=== PATIENT | male | born 1995 | race Caucasian/White ===

== ENCOUNTER 2017-10-26 06:35 | Emergency (ER) | payer OTHER ==
[~2017-10-26] VITALS: Ht 182.9 cm; Wt 91.0 kg
[2017-10-26] MEDS ORDERED: SODIUM CHLORIDE 0.9% 1,000 ML IV ONE (06:53)
[2017-10-26] MEDS ORDERED: MORPHINE SULFATE 4 MG/ML CPJ (NOT FOR IM USE) IV STA (06:53)
[2017-10-26] MEDS ORDERED: ONDANSETRON HCL 4MG/2ML VIAL IV STA (06:53)
[2017-10-26 09:33] VITALS: BP 128/74
[2017-10-27] MEDS ORDERED: HYDR-4001 PO (11:12)
[2017-10-27] MEDS ORDERED: KEPP500 PO (11:12)
== END 2017-10-26 09:40 | disposition home or self-care (01) ==
LOC: ER 06:35
DX: S82.832A Other fracture of upper and lower end of left fibula, initial encounter for closed fracture (principal); S82.292A Other fracture of shaft of left tibia, initial encounter for closed fracture; G40.909 Epilepsy, unspecified, not intractable, without status epilepticus; F17.210 Nicotine dependence, cigarettes, uncomplicated; W01.0XXA Fall on same level from slipping, tripping and stumbling without subsequent striking against object, initial encounter; Y93.89 Activity, other specified; Y99.8 Other external cause status; Y92.89 Other specified places as the place of occurrence of the external cause; Z98.890 Other specified postprocedural states
CPT/HCPCS: 29515; 73610; 96361; 96374; 96375; 99285; J2270; J2405; J7030; Z7610

== ENCOUNTER 2017-10-27 09:41 | Inpatient (IN) | payer OTHER ==
[~2017-10-27] VITALS: Ht 185.4 cm; Wt 112.9 kg
[2017-10-27] MEDS ORDERED: HYDR-4001 PO (11:12)
[2017-10-27] MEDS ORDERED: KEPP500 PO (11:12)
[2017-10-27] MEDS ORDERED: LACTATED RINGERS 1,000 ML IV SCH (11:30)
[2017-10-27 11:48] LABS: BASOPHILS % 0.5 % (0.0-2.0); EOSINOPHILS % 0.6 % (0.0-5.0); HEMATOCRIT. 41.1 % (42.0-52.0); HEMOGLOBIN. 14.2 g/dL (14.0-18.0); MEAN CORPUSCULAR HEMOGLOBIN 31.6 pg (28.0-32.0); MEAN CORPUSCULAR VOLUME 91.9 fL (80.0-94.0); MONOCYTES % 8.1 % (2.0-8.0); NEUTROPHILS % 70.8 % (40.0-76.0); PLATELET 284 x1000/uL (130-400); RED BLOOD CELL COUNT 4.48 mill/uL (4.7-6.1); RED CELL DISTRIBUTION WIDTH 11.9 % (11.6-14.6)
[2017-10-27 11:50] LABS: CLARITY URINE CLEAR (CLEAR); COLOR URINE DARK YELLOW (YELLOW); KETONES URINE TRACE (NEGATIVE); LEUKOCYTE ESTERASE URINE NEGATIVE (NEGATIVE); NITRITE URINE NEGATIVE (NEGATIVE); OCCULT BLOOD URINE NEGATIVE (NEGATIVE); PH URINE 5.5 (4.5-8.0); PROTEIN URINE TRACE (NEGATIVE); SPECIFIC GRAVITY URINE 1.025 (1.005-1.030)
[2017-10-27 11:52] LABS: CHLORIDE 104 mEq/L (98-107)
[2017-10-27 11:58] LABS: INR 1.2; PARTIAL THROMBOPLASTIN TIME 27.5 sec (23.4-31.0); PROTHROMBIN TIME 12.1 sec (9.4-11.6)
[2017-10-27] MEDS ORDERED: BUPIVACAINE HCL/PF 0.25% (2.5MG/ML) 10ML ONE (13:21)
[2017-10-27] MEDS ORDERED: BACITRACIN ZINC 15GM TUBE TOP ONE (13:21)
[2017-10-27] MEDS ORDERED: NORMAL SALINE 0.9% 10 ML SYR ONE (13:23)
[2017-10-27] MEDS ORDERED: BUPIVACAINE HCL/EPINEPHRINE/PF 0.5%/0.0005 10ML ONE (13:23)
[2017-10-27] MEDS ORDERED: BACITRACIN 50,000 UNITS/VIAL ONE (13:24)
[2017-10-27] MEDS ORDERED: DEXAMETHASONE 4MG/ML 1ML VIAL ONE (15:35)
[2017-10-27] MEDS ORDERED: CEFAZOLIN SODIUM 1000MG/VIAL ONE (15:35)
[2017-10-27] MEDS ORDERED: MEPERIDINE HCL/PF 25MG/ML CPJ IV PRN (16:45)
[2017-10-27] MEDS ORDERED: LABETALOL 5MG/ML SYR 20 MG/4 ML SYRINGE IV PRN (16:45)
[2017-10-27] MEDS ORDERED: HYDROMORPHONE HCL/PF 2MG/ML CPJ IV PRN (16:45)
[2017-10-27] MEDS ORDERED: ONDANSETRON HCL 4MG/2ML VIAL IV PRN ×2 (16:45→19:00)
[2017-10-27] MEDS ORDERED: MORPHINE SULFATE/PF 1MG/ML 10ML AMP ONE (17:02)
[2017-10-27] MEDS ORDERED: NALOXONE INJ IV PRN (19:00)
[2017-10-27] MEDS ORDERED: HYDROCODONE/ACETAMINOPHEN 10/325MG TABLET PO PRN ×2 (19:00)
[2017-10-27] MEDS ORDERED: ZOLPIDEM TARTRATE 5MG TABLET PO PRN (19:00)
[2017-10-27] MEDS ORDERED: HYDROMORPHONE PCA 10MG/50ML IV PRN (19:00)
[2017-10-27] MEDS ORDERED: ONDANSETRON INJ IV PRN (19:00)
[2017-10-27] MEDS ORDERED: ACETAMINOPHEN 325MG TABLET PO PRN (19:00)
[2017-10-27] MEDS ORDERED: DIPHENHYDRAMINE INJ IV PRN (19:00)
[2017-10-27] MEDS ORDERED: LEVETIRACETAM 1,000 MG in SODIUM CHLORIDE 0.9% 100 ML IV NR (20:00)
[2017-10-27 20:30] VITALS: BP 143/61
[2017-10-27] MEDS ORDERED: LEVETIRACETAM 500MG TABLET PO SCH (22:00)
[2017-10-27] MEDS: CEFAZOLIN 2,000 MG in DEXT 5% WATER 100 ML IV SCH (23:24)
[2017-10-28] VITALS: BP 118/72
[2017-10-28 04:00] VITALS: BP 145/83
[2017-10-28] MEDS ORDERED: LEVETIRACETAM 500MG TABLET PO SCH (06:00)
[2017-10-28] MEDS: CEFAZOLIN 2,000 MG in DEXT 5% WATER 100 ML IV SCH (06:09)
[2017-10-28 08:00] VITALS: BP 138/95
[2017-10-28 13:50] VITALS: BP 146/86
== END 2017-10-28 14:45 | disposition home or self-care (01) | DRG 493 ==
LOC: ER 09:41 → ORIP 10:55 → 6EST 21:57
PROVIDERS: ADMIT Orthopaedic Surgery; ATTEND Orthopaedic Surgery
PROC: 0MQR0ZZ Repair Left Ankle Bursa and Ligament, Open Approach (ICD-10-PCS; 2017-10-27)
PROC: 0QSK04Z Reposition Left Fibula with Internal Fixation Device, Open Approach (ICD-10-PCS; principal; 2017-10-27 14:00)
DX: S82.62XA Displaced fracture of lateral malleolus of left fibula, initial encounter for closed fracture (principal); M25.072 Hemarthrosis, left ankle; W18.39XA Other fall on same level, initial encounter; Y92.89 Other specified places as the place of occurrence of the external cause; Y93.89 Activity, other specified; G40.909 Epilepsy, unspecified, not intractable, without status epilepticus; Y99.8 Other external cause status
CPT/HCPCS: 36415; 73610; 80048; 81003; 85025; 85610; 85730; 93005; 97116; 97162; 99285; A4216; J0171; J0690; J1100; J1170; J1953; J2274; J3490; J7050; J7060; J7120